=== PATIENT | female | born 1970 | race Caucasian/White ===

== ENCOUNTER 2017-06-04 11:27 | Emergency (ER) | payer SELFPAY ==
[~2017-06-04] VITALS: Ht 165.1 cm; Wt 55.3 kg
[2017-06-04 13:50] VITALS: BP 137/88
== END 2017-06-04 13:58 | disposition home or self-care (01) ==
LOC: ER 11:27
DX: R09.89 Other specified symptoms and signs involving the circulatory and respiratory systems (principal); S27.818A Other injury of esophagus (thoracic part), initial encounter; X58.XXXA Exposure to other specified factors, initial encounter; Y93.89 Activity, other specified; Y92.89 Other specified places as the place of occurrence of the external cause; Y99.8 Other external cause status
CPT/HCPCS: 70360

== ENCOUNTER 2017-09-30 22:33 | Emergency (ER) | payer MEDICAID ==
[~2017-09-30] VITALS: Ht 165.1 cm; Wt 63.5 kg
[2017-09-30 22:45] VITALS: BP 147/96
[2017-10-01] MEDS ORDERED: IBUPROFEN 600 MG TAB PO ONE (00:30)
== END 2017-10-01 00:35 | disposition home or self-care (01) ==
LOC: ER 22:34
DX: J02.9 Acute pharyngitis, unspecified (principal); H92.02 Otalgia, left ear

== ENCOUNTER 2018-06-16 11:53 | Emergency (ER) | payer SELFPAY ==
[~2018-06-16] VITALS: Ht 165.1 cm; Wt 61.2 kg
[2018-06-16 12:19] VITALS: BP 143/96
[2018-06-16] MEDS ORDERED: IBUPROFEN 800 MG TAB PO ONE (15:45)
== END 2018-06-16 15:43 | disposition home or self-care (01) ==
LOC: ER 11:53
DX: H60.91 Unspecified otitis externa, right ear (principal)